=== PATIENT | male | born 1990 | race American Indian/Alaskan Native ===

== ENCOUNTER 2017-06-08 15:48 | Emergency (ER) | payer SELFPAY ==
--- NOTE | 2017-06-08 16:24 | Emergency Department Report ---
Stated Complaint: MH EVAL/TALKING TO SELF Time Seen by Provider: 06/08/17 16:20 - HPI History of Present Illness: PT was getting injections of medication, last was 4 months ago PT's father states that pt has not gotten his injections because his medicaid is not active For two months pt has been talking to himself and laughing - ROS Review of Systems: pt denies pain - Exam Physical Exam: pt is withdrawn pt alert MSE screening note: Focused history and physical exam performed. Due to findings the following was ordered: labs, mhe ED Disposition for MSE Condition: Stable
[2017-06-08 16:38] LABS: Basophils % (Auto) 0.4 % (0.0-1.8); Eosinophils % (Auto) 1.9 % (0.0-4.3); Hematocrit 44.1 % (35.5-45.6); Hemoglobin 14.6 gm/dl (11.8-15.2); Mean Corpuscular HGB Conc 33 % (32-34); Mean Corpuscular Hemoglobin 27 pg (28-32); Mean Corpuscular Volume 83 fl (84-94); Platelet Count 200 K/mm3 (140-440); Red Blood Count 5.33 M/mm3 (3.65-5.03); Red Cell Distribution Width 14.3 % (13.2-15.2); White Blood Count 4.4 K/mm3 (4.5-11.0)
[2017-06-08 16:50] LABS: Urine Drugs of Abuse Note Disclamer
[2017-06-08 16:58] LABS: Bilirubin,Urine NEG (Negative); Blood,Urine NEG (Negative); Ketones,Urine NEG (Negative); Leukocyte Esterase,Urine NEG (Negative); Nitrite,Urine NEG (Negative); Protein,Urine <15 mg/dL mg/dL (Negative); RBC,Urine < 1.0 /HPF (0.0-6.0); Urobilinogen,Urine < 2.0 mg/dL (<2.0)
[2017-06-08 17:01] LABS: Alanine Aminotransferase 12 units/L (7-56); Albumin 4.6 g/dL (3.9-5); Albumin/Globulin Ratio 1.9 %; Alkaline Phosphatase 69 units/L (35-129); Anion Gap 18 mmol/L; BUN/Creatinine Ratio 6.66; Blood Urea Nitrogen 6 mg/dL (9-20); Calcium 9.8 mg/dL (8.4-10.2); Carbon Dioxide 26 mmol/L (22-30); Chloride 100.5 mmol/L (98-107); Glucose 102 mg/dL (75-100); Sodium 140 mmol/L (137-145)
[2017-06-08 17:27] LABS: WBC,Urine < 1.0 /HPF (0.0-6.0)
--- NOTE | 2017-06-09 01:52 | Emergency Department Report ---
ED Psych HPI - General Chief Complaint: Psych Stated Complaint: MH EVAL/TALKING TO SELF Time Seen by Provider: 06/08/17 16:20 Source: patient Mode of arrival: Ambulatory Limitations: Language Barrier - History of Present Illness Initial Comments: 27 years old male history of schizophrenia brought by his father today stating that he is being had any abnormal behavior he's been having visual hallucination talking to himself a lot. Father stated that he is being causing him and his mother understand this is unusual for him. He told me that they brought a river rat last week and he told his father that he wanted to kill a river rat. Did not mention any suicidal thoughts. -: Gradual Associated Psychiatric Symptoms: homicidal ideation, auditory hallucinations, visual hallucinations History of same: Yes Context: not taking psychiatric - Related Data Allergies Allergy/AdvReac Type Severity Reaction Status Date / Time No Known Allergies Allergy Unverified 06/08/17 16:21 ED Review of Systems ROS: Stated complaint: MH EVAL/TALKING TO SELF Other details as noted in HPI Comment: All other systems reviewed and negative Constitutional: denies: chills, fever Respiratory: denies: cough, shortness of breath Cardiovascular: denies: chest pain, palpitations Gastrointestinal: denies: abdominal pain, nausea, vomiting Neurological: denies: headache, numbness ED Past Medical Hx - Past Medical History Previous Medical History?: Yes Hx Psychiatric Treatment: Yes (schizophrenia) - Surgical History Past Surgical History?: No - Social History Smoking Status: Current Every Day Smoker Substance Use Type: Prescribed ED Physical Exam - General Limitations: No Limitations General appearance: alert, in no apparent distress - Head Head exam: Present: atraumatic, normocephalic - Eye Eye exam: Present: normal appearance - ENT ENT exam: Present: normal exam - Neck Neck exam: Present: normal inspection - Respiratory Respiratory exam: Present: normal lung sounds bilaterally. Absent: wheezes, rales, rhonchi - Cardiovascular Cardiovascular Exam: Present: regular rate, normal rhythm, normal heart sounds - GI/Abdominal GI/Abdominal exam: Present: soft. Absent: distended, tenderness, guarding, rebound, rigid, mass, bruit, pulsatile mass, hernia - Extremities Exam Extremities exam: Present: normal inspection - Back Exam Back exam: Present: normal inspection. Absent: CVA tenderness (R), CVA tenderness (L) - Neurological Exam Neurological exam: Present: alert, oriented X3, CN II-XII intact - Psychiatric Psychiatric exam: Present: homicidal ideation. Absent: suicidal ideation - Skin Skin exam: Present: warm, intact, normal color ED Course Vital Signs 06/08/17 06/08/17 16:21 23:30 Temperature 99.4 F 98.8 F Pulse Rate 91 H 72 Respiratory 18 18 Rate Blood Pressure 114/67 143/86 O2 Sat by Pulse 96 100 Oximetry ED Medical Decision Making - Lab Data Result diagrams: 06/08/17 16:30 06/08/17 16:30 Critical care attestation.: If time is entered above; I have spent that time in minutes in the direct care of this critically ill patient, excluding procedure time. ED Disposition Clinical Impression: Acute psychosis Disposition: DC/TX-65 PSY HOSP/PSY UNIT Is pt being admited?: No Does the pt Need Aspirin: No Condition: Stable Referrals: PRIMARY CARE, [Primary Care Provider] - 3-5 Days
--- NOTE | 2017-06-10 14:26 | Consultation ---
History of Present Illness - Reason for Consult Consult date: 06/10/17 Reason for consult: Mental Health Evaluation Requesting physician: RAYMOND CASTELLON - Chief Complaint Chief complaint: "I don't speak kyrgyz" - History of Present Psychiatric Illness 27 years old male history of schizophrenia brought by his father for bizarre behavior. Today patient is calm during assessment. He stated that he does not speak kyrgyz. He stated that he speak salvadorean. Per collateral information from his father Cody Tovar, he stated that his son was talking to himself and staring at the sanchez prior to his admission to the hospital. He stated this isn' t his son's behavior when stable. He stated that his son receive the Invega injection monthly for schizophrenia. His last administration was March 2017. Per the staff, no behavioral disturbances overnight. No gestures of SI/HI's by the patient. Medications and Allergies Allergies Allergy/AdvReac Type Severity Reaction Status Date / Time No Known Allergies Allergy Unverified 06/08/17 16:21 Home Medications Medication Instructions Recorded Confirmed Last Taken Type No Known Home Medications [No 06/09/17 06/09/17 Unknown History Reported Home Medications] Past psychiatric history - Past Medical History Past Medical History: other (Per the patient's father, no medical hx) Past Surgical History: Other (Per the patient's father, no surgical hx) - past Psychiatric treatment and history psychiatric treatment history: Per his father, patient was seen by an psychiatrist in [place]. - Social History Social history: lives with family, other Mental Status Exam - Vital signs Last Vital Signs Temp 98.6 F 06/10/17 10:47 Pulse 78 06/10/17 10:47 Resp 16 06/10/17 11:56 BP 133/82 06/10/17 10:47 Pulse Ox 99 06/10/17 11:56 - Exam Narrative exam: Unable to complete MSE Results Result Diagrams: 06/08/17 16:30 06/08/17 16:30 All other labs normal. Assessment and Plan Assessment and plan: Impression:Historical Dx: Schizophrenia. Today patient is calm during assessment. Patient is salvadorean speaking. No gestures of SI/HI's. Recommendation/Plan: Continue 1013. Start Risperdal 1 mg PO HS for schizophrenia and Cogentin 0.5 mg PO HS for EPS prevention. His last administration was March 2017.
[2017-06-10] MEDS ORDERED: COGENTIN PO SCH (22:00)
[2017-06-10] MEDS ORDERED: RisperDAL PO SCH (22:00)
--- NOTE | 2017-06-11 14:13 | Progress Note ---
Subjective - Reason for Consult Consult date: 06/11/17 Reason for consult: Psychiatry Follow-up - Chief Complaint Chief complaint: "Good morning" 27 years old male history of schizophrenia brought by his father for bizarre behavior. Today patient is calm and cooperative during assessment. This patient is malian speaking. Per the electrical plumbing supervisor line (malian) (tank wagon operator number [id number]) , patient acknowledged that he has Bipolar DO. He stated that he was having anxiety, but denies bizarre behavior at home with his father prior to being admitted to [facility]. He stated not wanting to come to the hospital. He acknowledged receiving the invega injection months ago (collateral information from his father). He denies SI/HI's, AVH's, and depression. Per the staff, no behavioral disturbances overnight. He stated that he would like outpatient psy services for his local area. Mental Status Exam - Vital signs Last Vital Signs Temp 98 F 06/10/17 23:50 Pulse 88 06/10/17 23:50 Resp 16 06/11/17 13:46 BP 132/77 06/10/17 23:50 Pulse Ox 99 06/11/17 13:46 - Exam Narrative exam: MSE: Appearance: calm, cooperative Behavior: regular eye contact Speech: regular rate and tone Mood: "okay" Affect: congruent to mood Thought Process: linear Thought Content: denies SI/HI's and AVH's Motor Activity: ambulatory Cognition: A/Ox 3 Insight: fair Judgment: fair Assessment and Plan Impression:Historical Dx: Bipolar DO/Schizophrenia. Today patient is calm during assessment. Patient is malian speaking. Recommendation/Plan: Rescind 1013. Continue Risperdal 1 mg PO HS for schizophrenia and Cogentin 0.5 mg PO HS for EPS prevention. His last administration was March 2017. Patient can follow-up with [facility] for outpatient psy services.
[2017-06-11 14:28] VITALS: BP 120/76
== END 2017-06-11 18:51 | disposition home or self-care (01) ==
LOC: EEVIPCON 15:48 → ED 15:48
DX: F20.9 Schizophrenia, unspecified (principal); F17.210 Nicotine dependence, cigarettes, uncomplicated
CPT/HCPCS: 36415; 80053; 80307; 81001; 85025; 99285; G0480; 80320

== ENCOUNTER 2020-07-15 17:59 | Emergency (ER) | payer SELFPAY ==
[2020-07-15 19:19] LABS: Basophils % (Auto) 0.3 % (0.0-1.8); Eosinophils # (Auto) 0.1 K/mm3 (0.0-0.4); Eosinophils % (Auto) 0.7 % (0.0-4.3); Hematocrit 42.3 % (35.5-45.6); Hemoglobin 14.3 gm/dl (11.8-15.2); Lymphocytes # (Auto) 1.3 K/mm3 (1.2-5.4); Lymphocytes % (Auto) 16.8 % (13.4-35.0); Mean Corpuscular HGB Conc 34 % (32-34); Mean Corpuscular Volume 83 fl (84-94); Monocytes # (Auto) 0.5 K/mm3 (0.0-0.8); Platelet Count 211 K/mm3 (140-440); Red Blood Count 5.09 M/mm3 (3.65-5.03)
[2020-07-15 19:46] LABS: Alanine Aminotransferase 15 units/L (7-56); Albumin 4.9 g/dL (3.9-5); BUN/Creatinine Ratio 8; Blood Urea Nitrogen 8 mg/dL (9-20); Hemolysis Index 9
--- NOTE | 2020-07-15 23:59 | Emergency Department Report ---
ED Palpitations HPI - General Chief Complaint: Arrhythmia/Palpitations Stated Complaint: NEED VITALS Time Seen by Provider: 07/15/20 23:42 Source: patient Mode of arrival: Ambulatory Limitations: No Limitations - History of Present Illness Initial Comments: This is a 30-year-old male who presents to the emergency department with a complaint of some palpitations that started earlier this evening, around 8 PM. Patient says "my heart is altered and so is my mind." Patient denies any diagnosed psychiatric history, but does appear to have a previous history of schizophrenia. The patient was seen here back in 2017 regarding visual hallucinations but was ultimately discharged from the emergency department after a psychiatric consultation. Patient denies any chest pain, shortness of breath, nausea, vomiting or diaphoresis. He has not taken anything for his symptoms prior to presentation. He is a tobacco smoker but denies any illicit drug use. The patient does admit to visual hallucinations in which she sees the "spiritual world", but denies any suicidal or homicidal ideations. The patient is currently awake and oriented, AAO x3. The patient does not speak Solomon Islander, so translation was provided by the patient's nurse, Charisse. - Related Data Home Medications Medication Instructions Recorded Confirmed Last Taken No Known Home Medications [No 06/09/17 06/09/17 Unknown Reported Home Medications] Allergies Allergy/AdvReac Type Severity Reaction Status Date / Time No Known Allergies Allergy Unverified 06/08/17 16:21 ED Review of Systems ROS: Stated complaint: NEED VITALS Other details as noted in HPI Comment: All other systems reviewed and negative Constitutional: denies: chills, fever Eyes: denies: eye pain, vision change ENT: denies: ear pain, throat pain Respiratory: denies: cough, shortness of breath Cardiovascular: palpitations. denies: chest pain Gastrointestinal: denies: abdominal pain, vomiting Genitourinary: denies: dysuria, discharge Musculoskeletal: denies: back pain, arthralgia Skin: denies: rash, lesions Neurological: denies: headache, weakness Psychiatric: visual hallucinations. denies: homicidal thoughts, suicidal thoughts ED Past Medical Hx - Past Medical History Previous Medical History?: Yes Hx Psychiatric Treatment: Yes (schizophrenia) - Surgical History Past Surgical History?: No - Social History Smoking Status: Never Smoker Substance Use Type: None - Medications Home Medications: Home Medications Medication Instructions Recorded Confirmed Last Taken Type No Known Home Medications [No 06/09/17 06/09/17 Unknown History Reported Home Medications] ED Physical Exam - General Limitations: No Limitations - Other Other exam information: GENERAL: The patient is well-developed well-nourished. HENT: Normocephalic. Atraumatic. Patient has moist mucous membranes. EYES: Extraocular motions are intact. NECK: Supple. Trachea is midline. CHEST/LUNGS: Clear to auscultation. There is no respiratory distress noted. HEART/CARDIOVASCULAR: Regular. There is no tachycardia. There is no murmur. ABDOMEN: Abdomen is soft, nontender. Patient has normal bowel sounds. SKIN: Skin is warm and dry. NEURO: The patient is awake, alert, and cooperative. The patient has no focal neurologic deficits. Normal speech. MUSCULOSKELETAL: There is no tenderness or deformity. There is no limitation range of motion. ED Course Vital Signs 07/15/20 07/16/20 07/16/20 23:45 00:00 00:15 Temperature 98.7 F Pulse Rate 55 L 53 L 54 L Respiratory 14 11 L 11 L Rate Blood Pressure 122/83 122/83 Blood Pressure 127/88 [Right] O2 Sat by Pulse 100 100 100 Oximetry 07/16/20 07/16/20 00:30 00:45 Temperature Pulse Rate 55 L 53 L Respiratory 11 L Rate Blood Pressure 123/89 122/83 Blood Pressure [Right] O2 Sat by Pulse 100 100 Oximetry ED Medical Decision Making - Lab Data Result diagrams: 07/15/20 19:00 07/15/20 19:00 - EKG Data -: EKG Interpreted by La EKG shows normal: sinus rhythm, axis, intervals, QRS complexes, ST-T waves (Early repolarization) Rate: normal - EKG Data When compared to previous EKG there are: previous EKG unavailable Interpretation: other (Sinus rhythm, normal intervals, normal axis, early repolarization. No ST elevation [place]) - Radiology Data Radiology results: image reviewed interpreted by me: Chest x-ray does not show any acute process. There are no pleural effusions, obvious pneumonia and there is no pneumothorax. No significant cardiomegaly. - Medical Decision Making Regarding the patient's palpitations, an EKG was completed that did not show any morphology consistent with ST elevation [place] or any dysrhythmia. Chest x-ray did not show any pneumonia, pleural effusions, pneumothorax, focal consolidation, or any other acute process. His labs have been unremarkable including CBC, metabolic panel, thyroid level and he had a negative troponin. The TSH level was slightly low but he had a normal free T4. The patient is low on the heart and RAH score. He is low on the Wells score criteria and negative on the pulmonary embolism rule out criteria. At the time of his initial evaluation, as well as at the time of disposition, the patient denies any active chest pain. The patient's contact information has been sent over to [facility] and someone from their office should be contacting him shortly for close outpatient follow-up. The patient had also mentioned that his mind was "altered." However the patient is oriented, AAO x3. He is calm and appropriate. He does express some visual hallucinations but does not appear to be responding to any internal stimuli. He denies any suicidal or homicidal ideations. For these reasons the patient does not appear to meet criteria for a 1013 or require inpatient psychiatric stabilization. He appears to have a previous diagnosis of schizophrenia and the patient at one point mentioned that he receives injections for some type of psychiatric treatment. The patient will be given a referral for the [facility] facility. He has been instructed to return to the emergency department with any worsening of his symptoms or with any acute distress. Critical Care Time: No Critical care attestation.: If time is entered above; I have spent that time in minutes in the direct care of this critically ill patient, excluding procedure time. ED Disposition Clinical Impression: Palpitations, Visual hallucinations Disposition: DC-01 TO HOME OR SELFCARE Is pt being admited?: No Condition: Stable Instructions: Palpitations (ED) Additional Instructions: Quinton un seguimiento con un mdico de atencin primaria en los prximos burgos. Le estoy dando kelly referencia para que el [facility] realice un seguimiento de evita alucinaciones. Estoy enviando gross informacin de contacto a [facility], y alguien de gross oficina debera comunicarse con usted en breve para un seguimiento ambulatorio con respecto a evita palpitaciones. Regrese al departamento de emergencias con cualquier empeoramiento de evita sntomas, pensamientos de hacerse dorothy a s mismo oa otros, o con cualquier angustia aguda. Referrals: PRIMARY CARE,MD [Primary Care Provider] - [facility] - 2-3 Days [facility] [Provider Group] - 2-3 Days [facility] [Provider Group] - 2-3 Days Time of Disposition: 00:44 Print Language: IRANIAN HEART Score - HEART Score History: Slightly suspicious EKG: Normal Age: < 45 Risk factors: 1-2 risk factors Troponin: Troponin T < 0.010 ng/mL (0.00-0.029) 07/15/20 19:00 Troponin: < normal limit HEART Score: 1 - Critical Actions Critical Actions: 0-3 pts:0.9-1.7%risk of adverse cardiac event.Candidate for discharge RAH score - Rah Score Age > 65: (0) No Aspirin use within the Past 7 Days: (0) No 3 or more CAD Risk Factors: (0) No 2 or more Angina events in past 24 hrs: (0) No Known CAD with more than 50% Stenosis: (0) No Elevated Cardiac Markers: (0) No ST Deviation Greater than 0.5mm: (0) No RAH Score: 0
--- NOTE | 2020-07-16 00:25 | XRay Report ---
CHEST 1 VIEW INDICATION: Palpitations. COMPARISON: None. FINDINGS: Support devices: None. Heart: Normal. Lungs/Pleura: No acute pulmonary or pleural findings. IMPRESSION: 1. No acute findings. Signer Name: David Beaulieu MD Signed: 07/16/2020 12:20 AM Workstation Name: [id number]
[2020-07-16 01:04] VITALS: BP 122/83
== END 2020-07-16 01:04 | disposition home or self-care (01) ==
LOC: ED 17:59
DX: R44.1 Visual hallucinations (principal); R00.2 Palpitations
CPT/HCPCS: 36415; 71045; 80053; 84439; 84443; 84484; 85025; 93005